=== PATIENT | male | born 1985 | race Caucasian/White ===

== ENCOUNTER 2016-11-25 13:44 | Emergency (ER) | payer MEDICAID ==
[~2016-11-25] VITALS: Ht 175.3 cm; Wt 73.5 kg
[2016-11-25 14:09] VITALS: BP_SYST 129
--- NOTE | 2016-11-25 14:55 | NUR ---
Patient to ER bed 2 to gown for evaluation. Side rails up. Report given to Nila CABAN.
--- NOTE | 2016-11-25 15:05 | NUR ---
Pt complains of red bumps on the back of the tongue, denies fever, pain, n/v or diarrhea. No other injuries/complaints per pt or noted.
--- NOTE | 2016-11-25 15:11 | NUR ---
ER ROCHELLE Shi at bedside examining patient.
[2016-11-25] MEDS ORDERED: NACL 0.9% 1,000 ML IV ONE (15:30)
[2016-11-25] MEDS ORDERED: ONDANSETRON HCL 4 MG/2 ML VIAL IVP ONE (15:30)
[2016-11-25 15:38] LABS: BASOPHILS % (AUTO) 0.5 % (0.0-2.0); EOSINOPHILS # (AUTO) 0.1 K/uL (0.0-0.4); HEMATOCRIT 46.1 % (36-54); MEAN CORPUSCULAR HEMOGLOBIN 29 pg (27-31); MEAN CORPUSCULAR HGB CONC 33 % (32-36); MEAN CORPUSCULAR VOLUME 88 fL (79.0-98.0); MONOCYTES # (AUTO) 0.6 K/uL (0.0-1.0); MONOCYTES % (AUTO) 7.3 % (1.7-9.3); NEUTROPHILS # (AUTO) 5.5 K/uL (1.8-7.7); NEUTROPHILS % (AUTO) 67.2 % (40.0-70.0); PLATELET COUNT (AUTO) 325 K/uL (130-430); RED BLOOD CELL COUNT(AUTO) 5.24 MIL/uL (4.2-6.2); RED CELL DISTRIBUTION WIDTH 11.2 % (9.0-15.0); WHITE BLOOD COUNT (AUTO) 8.2 K/uL (4.8-10.8)
[2016-11-25 15:52] LABS: BILIRUBIN,URINE NEGATIVE (NEGATIVE); BLOOD, URINE NEGATIVE (NEGATIVE); CLARITY/URINE CLEAR (CLEAR); COLOR,URINE YELLOW (YELLOW); GLUCOSE,URINE NEGATIVE (NEGATIVE); KETONES,URINE NEGATIVE (NEGATIVE); LEUKOCYTE ESTERASE ,URINE NEGATIVE (NEGATIVE); NITRITE, URINE NEGATIVE (NEGATIVE); PROTEIN URINE TRACE (NEGATIVE)
[2016-11-25 15:59] LABS: BACTERIA,URINE FEW /HPF (None Seen); MUCUS,URINE None Seen /LPF (None Seen); RBC,URINE 0-3 /HPF (0-3); WBC,URINE 0-3 /HPF (0-3)
--- NOTE | 2016-11-25 16:01 | NUR ---
Pt is resting comfortably in bed with no noted distress or discomfort.
--- NOTE | 2016-11-25 16:30 | NUR ---
Yuridia BYRD assessed the pt's groin with Nila CABAN at bedside, pt tolerated well.
[2016-11-25 16:31] LABS: BARBITURATE, URINE NEGATIVE (NEG <=200); BENZODIAZEPINE, URINE NEGATIVE (NEG <=150); CANNABINOID, URINE POSITIVE (NEG <=50); COCAINE, URINE NEGATIVE (NEG <=150); METHAMPHETAMINES SCREEN,URINE NEGATIVE (NEG <=500); OPIATE, URINE NEGATIVE (NEG <=100); PHENCYCLIDINE SCREEN,URINE NEGATIVE (NEG <=25); UR TRICYCLIC ANTIDEPRESSANTS NEGATIVE (NEG <=300); URINE AMPHETAMINE NEGATIVE (NEG <=500); URINE METHADONE NEGATIVE (NEG <=200); URINE OXYCODONE SCREEN NEGATIVE (NEG <=100); URINE PROPOXYPHENE SCREEN NEGATIVE (NEG <=300)
[2016-11-25 16:54] LABS: CALCIUM 8.8 mg/dL (8.4-11.0); CREATININE 0.8 mg/dL (0.55-1.30); POTASSIUM 3.5 mmol/L (3.5-5.1)
[2016-11-25 17:23] LABS: ALBUMIN 3.9 g/dL (3.4-4.8)
[2016-11-25] MEDS ORDERED: PENICILLIN G BENZATHINE 1.2 MMU/2 ML SYR IM ONE (17:30)
--- NOTE | 2016-11-25 17:32 | NUR ---
medication was given, no adverse reaction noted. Pt is resting comfortably, no distress noted.
[2016-11-25 17:33] VITALS: BP_SYST 129
--- NOTE | 2016-11-25 17:33 | NUR ---
Patient given written and verbal discharge instructions and verbalizes understanding. ER MD discussed with patient the results and treatment provided. Patient in stable condition. ID arm band removed. IV catheter removed intact and dressing applied, no active bleeding. No Rx given. Patient educated on pain management and to follow up with PMD. Pain Scale 0. Opportunity for questions provided and answered. Addendum: 11/25/16 at 1809 by RAMESH Pt left at 1753 not 1733
[2016-11-25 17:36] LABS: TOTAL BILIRUBIN 1.9 mg/dL (0.0-1.0)
== END 2016-11-25 17:33 | disposition home or self-care (01) ==
LOC: SED 13:44
DX: K13.70 Unspecified lesions of oral mucosa (principal); R10.13 Epigastric pain; F12.90 Cannabis use, unspecified, uncomplicated; F15.90 Other stimulant use, unspecified, uncomplicated; Z86.19 Personal history of other infectious and parasitic diseases
CPT/HCPCS: 36415; 76700; 80053; 80307; 81000; 83690; 85025; 86592; 87491; 87591; 96361; 96372; 96374; 99285; J0561; J2405; J7030

== ENCOUNTER 2017-02-12 21:45 | Emergency (ER) | payer BC, MEDICAID ==
[~2017-02-12] VITALS: Ht 175.3 cm; Wt 73.5 kg
[2017-02-12 22:00] VITALS: BP_SYST 147
[2017-02-12 23:28] VITALS: BP_SYST 147
== END 2017-02-12 23:28 | disposition home or self-care (01) ==
LOC: SED 21:45
DX: Z20.6 Contact with and (suspected) exposure to human immunodeficiency virus [HIV] (principal); Z86.19 Personal history of other infectious and parasitic diseases
CPT/HCPCS: 36415; 86706; 87340; 99284